=== PATIENT | female | born 1955 | race Caucasian/White ===

== ENCOUNTER → 2021-01-10 08:05 | Outpatient (BNVA) | payer MEDICARE, BC, SELFPAY | PROVIDERS: PCP Internal Medicine; Visit Provider Nurse Practitioner Family | DX: M16.0 Bilateral primary osteoarthritis of hip (principal); M53.9 Dorsopathy, unspecified; G62.9 Polyneuropathy, unspecified | CPT/HCPCS: 99202 ==